=== PATIENT | male | born 1980 | race Caucasian/White ===

== ENCOUNTER 2017-07-27 13:18 | Emergency (ER) | payer OTHER ==
--- NOTE | ~2017-07-27 | ER ---
PATIENT'S NAME: MARTHA SIMMONS [facility] AGE: 36 Y [address] ROOM: [place] [address] LOCATION: [facility] ADMIT DATE: 07/27/2017 ER/Outpatient Report DISCHARGE DATE: FAMILY PHYSICIAN: Brendan Rodriguez MD ATTENDING PHYSICIAN: Antionette Freire Time of Arrival: 1320. Time of Evaluation: 1320. SUBJECTIVE: CHIEF COMPLAINT: Left flank pain. HISTORY OF PRESENT ILLNESS: The patient is a pleasant 36-year-old male complaining of left flank pain that radiates into his groin that started 2 to 3 days ago. Describes it as a sharp sensation in his flank that has come and gone several times, but is very intense today. States it feels like kidney stones he has had in the past. Has 2 prior episodes of nephrolithiasis. He does not denote which side by history. Denies fever, chills, or sweats. Has some pain with urination. Was seen at [facility] earlier this week who found some blood present in his urine, but "they have no proof that it is really a kidney stone." He has been taking hydrocodone which he is poorly tolerant of due to some nausea, but no vomiting. PERTINENT REVIEW OF SYSTEMS: All systems reviewed by me and negative unless otherwise stated in the HPI. PAST MEDICAL HISTORY: Previous kidney stones. PAST SURGICAL HISTORY: Denied by the patient. CURRENT MEDICATIONS: Hydrocodone prescribed yesterday at [facility]. MEDICATIONS: No known drug allergies. SOCIAL HISTORY: The patient denies being a smoker. OBJECTIVE: PATIENT'S NAME: MARTHA SIMMONS [facility] AGE: 36 Y [address] ROOM: [place] [address] LOCATION: [facility] ADMIT DATE: 07/27/2017 ER/Outpatient Report DISCHARGE DATE: FAMILY PHYSICIAN: Brendan Rodriguez MD ATTENDING PHYSICIAN: Antionette Freire VITAL SIGNS: Height 5 feet 8 inches, weight 109.3 kg. Blood pressure 145/95. Pulse is 81 and regular. Respirations 18 per minute. Temperature is 97.8 degrees Fahrenheit taken tympanically. SpO2 98% on room air. PAIN LEVEL: 8/10 at this time. GENERAL: The patient is obese and in mild distress. Calm. Alert and oriented to person, place, and time. HEENT: Head is atraumatic and normocephalic. Eyes show conjunctivae clear bilaterally. No discharge. Pupils are PERRLA bilaterally. EOMFI bilaterally. No nystagmus. Throat with midline uvula. No exudates, erythema, or tonsillar hypertrophy. NECK: Supple and without lymphadenopathy. Trachea midline. No JVD. Full range of motion without pain. LUNGS: Clear to auscultation bilaterally. No wheezes, crackles, rhonchi, or stridor. Normal respiratory effort. HEART: Regular rate and rhythm. No S3, S4, or extra sounds. ABDOMEN: With positive Ernesto's test on the left side. Positive bowel sounds x4. Soft, nontender, nondistended. Normal percussion. No masses. EXTREMITIES: Without numbness or tingling. No clubbing, cyanosis, or edema. Full range of motion in extremities x4 with 5/5 strength. +2/4 pulses at dorsalis pedis and radial arteries bilaterally. SKIN: [place], warm, and dry and without edema or obvious insult. LABORATORY DATA: Urinalysis shows urine color yellow, turbidity clear, spec gravity 1.015, pH is 6.0, leukocytes negative, nitrite negative, protein negative, glucose negative, ketone 5, urobilinogen normal, bilirubin negative, blood 25, white blood cells 0 to 2 per high-power field, red blood cells 0 to 2 per high-power field, negative for epithelium, and a few bacteria. RADIOLOGY: CT scan with stone protocol reveals a 3.5 mm renal calculus along the left ureter just superior to the bladder. See Radiology over read for details. Discussed all the above results with the patient in room. ASSESSMENT: 1. Left flank pain. 2. Nephrolithiasis. PLAN: Provided the patient with an IV bolus of 1 L normal saline as well as Toradol 30 mg IV push. He had excellent improvement in his pain after the medication took effect. I would like to continue him with the [place] he has, but I want to provide him with some Zofran to take home to manage the nausea. If he tolerates this well, he may continue using the [place], otherwise he will need PATIENT'S NAME: MARTHA SIMMONS [facility] AGE: 36 Y [address] ROOM: [place] [address] LOCATION: [facility] ADMIT DATE: 07/27/2017 ER/Outpatient Report DISCHARGE DATE: FAMILY PHYSICIAN: Brendan Rodriguez MD ATTENDING PHYSICIAN: Antionette Freire to be seen by his regular physician for a change in pain killer. Suggested he use [id number] ibuprofen or Tylenol as directed as a first line pain med, and the [place] for breakthrough pain. The patient was receptive of the conversation. He will likely need just a tincture of time and plenty of fluids pushed to allow this stone to pass. He should follow up with his regular care provider within the next 7 to 10 days, or sooner if his pain worsens. The patient verbalized understanding. Take all meds as prescribed. Discussed med risks, side effects, and benefits in detail. Take plenty of time for rest and push fluids. Take Tylenol or ibuprofen as directed for fever or discomfort unless allergic, asthmatic, or aspirin sensitive. Return to the emergency department or primary care provider if symptoms persist or worsen. The patient discharged home under the care of his partner present in room. Improved status. FRANKIE COLÓN PA-C FOR ANTIONETTE FREIRE MD SMR/modl /[id number] d: 07/27/17 2204 t: 07/31/17 1240, OUTPATIENT REPORT
[2017-07-27 14:08] LABS: BILIRUBIN URINE NEGATIVE (NEGATIVE); BLOOD URINE 25 /UL (NEGATIVE); COLOR URINE YELLOW (YELLOW); GLUCOSE URINE NEGATIVE (NEGATIVE); KETONE URINE 5 mg/dL (NEGATIVE); LEUKOCYTES URINE NEGATIVE /UL (NEGATIVE); NITRITE URINE NEGATIVE (NEGATIVE); PROTEIN URINE NEGATIVE (NEGATIVE); SPEC GRAVITY URINE 1.015 (1.003-1.035); TURBIDITY URINE CLEAR (CLEAR); UROBILINOGEN URINE NORMAL (NORMAL)
[2017-07-27 14:29] LABS: BACTERIA URINE FEW (NEGATIVE); EPITHELIAL URINE NEGATIVE #/HPF (NEGATIVE); RBC URINE 0-2 #/HPF (NEGATIVE); WBC URINE 0-2 #/HPF (NEGATIVE)
== END 2017-07-27 14:44 | disposition disaster alternative care site (69) ==
LOC: GMED 13:18
PROVIDERS: Physician Assistant
DX: N13.2 Hydronephrosis with renal and ureteral calculous obstruction (principal)
CPT/HCPCS: J1885; J7030